=== PATIENT | female | born 1950 | race Hispanic/Latino ===

== ENCOUNTER → 2017-08-21 | Outpatient (CLI) | payer OTHER | END | disposition home or self-care (01) | LOC: RAH 12:34 | PROVIDERS: ATTEND Family Medicine | DX: Z12.31 Encounter for screening mammogram for malignant neoplasm of breast (principal) | CPT/HCPCS: 77067 ==

== ENCOUNTER → 2020-05-31 | Outpatient (CLI) | payer OTHER | END | disposition home or self-care (01) | LOC: RAH 09:54 | PROVIDERS: ATTEND Family Medicine | DX: Z12.31 Encounter for screening mammogram for malignant neoplasm of breast (principal) | CPT/HCPCS: 77067 ==

== ENCOUNTER 2022-01-23 18:11 | Emergency (ER) | payer OTHER ==
[~2022-01-23] VITALS: Ht 157.5 cm; Wt 61.2 kg
[2022-01-23 19:56] LABS: BASOPHILS % (AUTO) 0.6 % (0.0-5.0); EOSINOPHILS % (AUTO) 0.7 % (0.0-8.0); HEMATOCRIT 36.5 % (36-48); LYMPHOCYTES % (AUTO) 20.4 % (21.0-51.0); MEAN CORPUSCULAR HEMOGLOBIN 29.7 pg (27.0-33.0); MEAN CORPUSCULAR HGB CONC 32.9 g/dL (32.0-36.0); MEAN CORPUSCULAR VOLUME 90.3 fL (79-99); MONOCYTES % (AUTO) 5.5 % (3.0-13.0); NEUTROPHILS % (AUTO) 72.5 % (40.0-77.0); PLATELET COUNT (AUTO) 248 K/uL (130-400); RED BLOOD CELL COUNT(AUTO) 4.04 MIL/uL (4.00-5.50); RED CELL DISTRIBUTION WIDTH 12.6 % (11.0-15.5); WHITE BLOOD COUNT (AUTO) 6.8 K/uL (4.8-10.8)
[2022-01-23 20:06] LABS: POTASSIUM 3.6 mmol/L (3.5-5.1)
[2022-01-23 20:21] LABS: ALBUMIN 3.5 g/dL (3.5-5.0); TOTAL PROTEIN, SERUM 7.8 g/dL (6.0-8.3)
[2022-01-23] MEDS ORDERED: KETOROLAC 15MG/ML VIAL (15MG/ML) IV ONE (20:30)
[2022-01-23] MEDS ORDERED: NAPR-1180 PO (21:06)
[2022-01-23 21:09] VITALS: BP 157/83
== END 2022-01-23 21:18 | disposition home or self-care (01) ==
LOC: EDH 18:11
DX: R07.89 Other chest pain (principal); Z90.710 Acquired absence of both cervix and uterus; Z79.899 Other long term (current) drug therapy
CPT/HCPCS: 99285; 96374; 71045; 83735; 84484; 80053; 85025; 36415; J1885; 93005

== ENCOUNTER → 2022-07-07 | Outpatient (CLI) | payer OTHER ==
[~2022-07-07] MED LIST: NAPR-1180 PO
== END | disposition home or self-care (01) ==
LOC: RAH 14:45
PROVIDERS: ATTEND Family Medicine
DX: Z12.31 Encounter for screening mammogram for malignant neoplasm of breast (principal)
CPT/HCPCS: 77067

== ENCOUNTER 2022-09-01 17:45 | Emergency (ER) | payer OTHER ==
[~2022-09-01] VITALS: Ht 157.5 cm; Wt 63.5 kg
[2022-09-01 18:30] LABS: BASOPHILS % (AUTO) 0.7 % (0.0-5.0); EOSINOPHILS % (AUTO) 0.3 % (0.0-8.0); HEMATOCRIT 40.6 % (36-48); LYMPHOCYTES % (AUTO) 16.4 % (21.0-51.0); MEAN CORPUSCULAR HEMOGLOBIN 29.5 pg (27.0-33.0); MEAN CORPUSCULAR VOLUME 92.1 fL (79-99); MONOCYTES % (AUTO) 2.8 % (3.0-13.0); NEUTROPHILS % (AUTO) 79.5 % (40.0-77.0); PLATELET COUNT (AUTO) 251 K/uL (130-400); RED BLOOD CELL COUNT(AUTO) 4.41 MIL/uL (4.00-5.50); RED CELL DISTRIBUTION WIDTH 12.1 % (11.0-15.5); WHITE BLOOD COUNT (AUTO) 9.8 K/uL (4.8-10.8)
[2022-09-01] MEDS ORDERED: ONDANSETRON 4MG INJ IVP ONE (18:30)
[2022-09-01] MEDS ORDERED: MORPHINE 2 MG SYG IVP ONE (18:30)
[2022-09-01] MEDS ORDERED: ONDANSETRON 4MG INJ ONE (18:32)
[2022-09-01] MEDS ORDERED: MORPHINE 2 MG SYG ONE (18:32)
[2022-09-01 18:39] LABS: APPEARANCE,URINE CLEAR (CLEAR); BILIRUBIN,URINE NEGATIVE (NEGATIVE); COLOR,URINE COLORLESS (YELLOW); GLUCOSE, URINE (UA) NEGATIVE (NEGATIVE); KETONES,URINE NEGATIVE (NEGATIVE); LEUKOCYTE ESTERASE ,URINE 25 Leu/uL (NEGATIVE); NITRATE,URINE NEGATIVE (NEGATIVE); OCCULT BLOOD,URINE NEGATIVE (NEGATIVE); PH,URINE 7.5 (5.0-8.0); PROTEIN,URINE NEGATIVE (NEGATIVE); UROBILINOGEN,URINE 0.2 mg/dL (0.2-1.0)
[2022-09-01 18:42] LABS: RBC,URINE 0-1 /HPF (0-1); SQUAMOUS EPITHELIAL CELL,UR RARE /HPF (0-2)
[2022-09-01 18:45] LABS: POTASSIUM 3.6 mmol/L (3.5-5.1); TOTAL PROTEIN, SERUM 8.8 g/dL (6.0-8.3)
[2022-09-01] MEDS ORDERED: FAMOTIDINE 20MG VIAL IV ONE (20:30)
[2022-09-01] MEDS ORDERED: MORPHINE 4 MG SYG IVP ONE (20:30)
[2022-09-01] MEDS ORDERED: METOCLOPRAMIDE 10 MG/2 ML VIAL IVP ONE (20:30)
[2022-09-01] MEDS ORDERED: IOHEXOL-350 75 ML VIAL IV ONE (20:33)
[2022-09-01 20:43] VITALS: BP 194/79
[2022-09-01] MEDS ORDERED: CEFTRIAXONE 2GM VIAL IVPB ONE (23:00)
[2022-09-01] MEDS ORDERED: METO-296 PO (23:01)
[2022-09-01] MEDS ORDERED: FAMO-136 PO (23:01)
[2022-09-01] MEDS ORDERED: CEPH500B PO (23:01)
== END 2022-09-01 23:23 | disposition home or self-care (01) ==
LOC: EDH 17:45
DX: R11.2 Nausea with vomiting, unspecified (principal); R07.89 Other chest pain; Z90.710 Acquired absence of both cervix and uterus
CPT/HCPCS: 99285; 74178; 96374; 96375; 71045; 84484; 80053; 83690; 85025; 81001; 36415; 96376; 93005; J3490; J2270 ×2; J0696; J2405; J2765; Q9967

== ENCOUNTER 2022-09-04 12:26 | Emergency (ER) | payer OTHER ==
[~2022-09-04] VITALS: Ht 157.5 cm; Wt 62.1 kg
[~2022-09-04 12:26] MED LIST changes: +CEPH500B PO; +FAMO-136 PO; +METO-296 PO
[2022-09-04 13:07] LABS: BASOPHILS % (AUTO) 0.4 % (0.0-5.0); EOSINOPHILS % (AUTO) 0.3 % (0.0-8.0); HEMATOCRIT 41.9 % (36-48); LYMPHOCYTES % (AUTO) 12.1 % (21.0-51.0); MEAN CORPUSCULAR HEMOGLOBIN 29.5 pg (27.0-33.0); MEAN CORPUSCULAR VOLUME 92.1 fL (79-99); MONOCYTES % (AUTO) 4.9 % (3.0-13.0); NEUTROPHILS % (AUTO) 81.8 % (40.0-77.0); PLATELET COUNT (AUTO) 277 K/uL (130-400); RED BLOOD CELL COUNT(AUTO) 4.55 MIL/uL (4.00-5.50); RED CELL DISTRIBUTION WIDTH 12.7 % (11.0-15.5); WHITE BLOOD COUNT (AUTO) 14.1 K/uL (4.8-10.8)
[2022-09-04 13:16] LABS: CARBON DIOXIDE 28 mmol/L (21-32); CHLORIDE 95 mmol/L (101-111); CREATININE 1.4 mg/dL (0.5-1.5); GLOMERULAR FILTR. RATE CALC 40 mL/min (>90); GLUCOSE,RANDOM 140 mg/dL (70-105); POTASSIUM 3.4 mmol/L (3.5-5.1); SODIUM SERUM 134 mmol/L (136-145); UREA NITROGEN, BLOOD 33 mg/dL (7-18)
[2022-09-04 13:21] LABS: ALANINE AMINOTRANSFERASE 23 U/L (12-78); ALBUMIN 3.6 g/dL (3.5-5.0); ASPARTATE AMINOTRANSFERASE 22 U/L (10-37); LIPASE < 50 U/L (114-286); TOTAL PROTEIN, SERUM 8.4 g/dL (6.0-8.3)
[2022-09-04 13:22] LABS: APPEARANCE,URINE CLEAR (CLEAR); BILIRUBIN,URINE NEGATIVE (NEGATIVE); COLOR,URINE YELLOW (YELLOW); GLUCOSE, URINE (UA) NEGATIVE (NEGATIVE); KETONES,URINE NEGATIVE (NEGATIVE); LEUKOCYTE ESTERASE ,URINE NEGATIVE Leu/uL (NEGATIVE); NITRATE,URINE NEGATIVE (NEGATIVE); OCCULT BLOOD,URINE NEGATIVE (NEGATIVE); PH,URINE 5.5 (5.0-8.0); PROTEIN,URINE 30 mg/dL (NEGATIVE); UROBILINOGEN,URINE 3 mg/dL (0.2-1.0)
[2022-09-04] MEDS ORDERED: METOCLOPRAMIDE 10 MG/2 ML VIAL IVP ONE (13:30)
[2022-09-04] MEDS ORDERED: KETOROLAC 30MG VIAL (30MG/ML) IVP ONE (13:30)
[2022-09-04] MEDS ORDERED: 0.9%NACL 1000ML 1,000 ML IV ONE (13:30)
[2022-09-04] MEDS ORDERED: FAMOTIDINE 20MG VIAL IV ONE (13:30)
[2022-09-04 13:34] LABS: MUCUS,URINE RARE LPF (None Seen); OTHER CASTS, URINE 1 /LPF (None Seen); SQUAMOUS EPITHELIAL CELL,UR RARE /HPF (0-2)
[2022-09-04 15:02] VITALS: BP 117/69
== END 2022-09-04 15:02 | disposition home or self-care (01) ==
LOC: EDH 12:26
DX: K80.50 Calculus of bile duct without cholangitis or cholecystitis without obstruction (principal); E78.00 Pure hypercholesterolemia, unspecified; Z90.710 Acquired absence of both cervix and uterus; Z98.890 Other specified postprocedural states; Z79.899 Other long term (current) drug therapy
CPT/HCPCS: 99285; 96374; 76705; 71045; 96375; 84484; 80053; 83690; 85025; 87040 ×2; 83605; 81001; 36415; 93005; J3490; J7030; J1885; J2765

== ENCOUNTER → 2023-07-09 | Outpatient (CLI) | payer OTHER ==
[~2023-07-09] MED LIST changes: -CEPH500B PO; -FAMO-136 PO; +LORA10TA7 PO; -METO-296 PO; -NAPR-1180 PO; +OMEP20CA12 PO; +ROSU5TAB12 PO
== END | disposition home or self-care (01) ==
LOC: RAH 08:27
PROVIDERS: ATTEND Family Medicine
DX: Z12.31 Encounter for screening mammogram for malignant neoplasm of breast (principal)
CPT/HCPCS: 77067

== ENCOUNTER → 2024-04-07 | Emergency (ER) | payer OTHER ==
[~2024-04-07] VITALS: Ht 157.5 cm; Wt 63.5 kg
[~2024-04-07] MED LIST changes: +PRED20TA3 PO; -ROSU5TAB12 PO; +ROSU5TAB51 PO; +VALA100031 PO; +predniSONE 20 MG TABLET PO SCH
[2024-04-07 06:33] VITALS: BP 166/81; PULSE 91; RESP 16; TEMP 98.3
--- NOTE | 2024-04-07 07:42 | ERN ---
General Chief Complaint: Insect Bite Stated Complaint: POSSIBLE INSECT BITE, REDNESS Time Seen by MD: 08:28 Source: patient History of Present Illness Initial Comments Patient is a 73-year-old female with a past medical history of hyperlipidemia who presented to the emergency room with complaints of a 2 week history of pain and redness to the right side of her face. Patient states 2 weeks ago she noticed what appeared to be insect bites on her chin, states that there was pain and tenderness to the chin. Patient thought nothing of it until a week later when she noticed some rash on her chin and on the left side of her face. For this she went to her PCP who ordered cephalexin 250 mg and mupirocin ointment. However patient noticed that the redness pain and rash increased so she decided to come to the emergency room for evaluation and treatment. Patient states that she had a fever this morning, temperature was 100.8. Denies any nausea, vomiting, chest pain, shortness of breath. Patient has a history of shingles few years ago. Allergies: Coded Allergies: No Known Allergies (Unverified Allergy, Unknown, 01/23/22) Home Meds Active Scripts Prednisone (Prednisone) 20 Mg Tablet, 1 TAB PO BID for 5 Days, #10 TAB 0 Refills Prov:MAYE PHELAN MD 04/07/24 Valacyclovir HCl (Valacyclovir) 1,000 Mg Tablet, 1 TAB PO TID for 7 Days, #21 TAB 0 Refills Prov:MAYE PHELAN MD 04/07/24 Reported Medications Rosuvastatin Calcium (Rosuvastatin Calcium) 5 Mg Tablet, 5 MG PO HS, TAB 12/28/22 Omeprazole (Omeprazole) 20 Mg Capsule.dr, 20 MG PO DAILY, CAP 12/28/22 Loratadine (Claritin) 10 Mg Tab, 10 MG PO DAILY, TAB 12/28/22 Past Medical History Past Medical History: Diverticulitis, Diverticulosis, Gallstones, High Cholesterol Past Surgical History: Hysterectomy Surgical History Other: TUMOR REMOVED FROM RT LUNG Social History Social History: Negative ROS Dictation Constitutional: No appetite loss, No fevers, chills , No night sweats, No weakness, fatigue Eye: No vision change, No redness, pain or discharge ENT: No hearing loss, ear pain or discharge, No nose bleeds, No sore throat, Neck: No swelling. pain or stiffness Respiratory: No cough, shortness of breath, wheezing Cardiovascular: No chest pain,, palpitations, dyspnea, No edema Gastrointestinal: No abdominal pain, No nausea, vomiting, No diarrhea, constipation Genitourinary: No painful urination, No blood in urine, No urinary incontinence, No frequency or urgency Musculoskeletal: No joint pain, muscle pain, swelling or stiffness Neurological: No numbness, tingling, No weakness, tremors or seizures Integumentary: Rash, redness ,pain left side of face Lymphatic: No easy bruising, No bleeding tendencies , No swollen lymph nodes A 13-point Review of Systems was assessed, all of which are negative except for HPI or as indicated above. Physical Exam Physical Exam Dictation General: Alert & Oriented, No acute distress. EENT: No conjunctival redness or discharge noted Tympanic membranes are clear, Normal hearing, Oral mucosa is moist, No pharyngeal erythema, No nasal discharge, No oral lesions. Neck: Non-tender, No jugular vein distention, No lymphadenopathy, No thyromegaly, Supple. Respiratory: Lungs are clear to auscultation, Respirations are non-labored, Breath sounds are equal, No chest wall tenderness, _. Cardiovascular: Normal rate, Normal rhythm, No murmur, Good pulses equal in all extremities, Normal peripheral perfusion, No edema. Gastrointestinal: Soft, Non-tender, Non-distended, Normal bowel sounds, No organomegaly, _. Musculoskeletal: Normal range of motion, Normal strength, No tenderness, No swelling, No deformity, Normal gait. Integumentary: Vesicular lesions, erythema on the left side of chin and face Neurologic: Alert, Oriented x4, Normal sensory, No focal defects Psychiatric: Cooperative, Appropriate mood & affect, Normal judgement, Non- suicidal. MDM Potential differential diagnoses include: * Shingles * Contact dermatitis Assessment: We will order valacyclovir, Prednisone 20 mg for 5 days I will re-evaluate the patient after treatment and diagnostic exams have returned to determine whether they require further testing, can be safely discharged home, or need admission for further treatment and evaluation. Given the social determinants of health affecting care, including literacy, access to medical care, prescription drug management, and [id number] drugs, I will ensure that treatment plans are tailored accordingly. Revaluation : Patient is alert and oriented. States she feels a lot better . Disposition: Will discharge patient at this time with prescription of Valcyclovir 1000mg for 7 days and Prednisone 20mg bid for 5 days PO and instructions to follow up with PCP for further evaluation and treatment. Attestation: Patient's case was discussed with the ER MD. Reviewed the documentation, medical decision making and treatment plan. Agrees with the findings and plan of care. ED Course Orders Procedure Category Date Status Time Prednisone 20mg Tab PHA 04/07/24 Complete (Deltasone/Orasone 2 09:00 Prednisone 20mg Tab PHA 04/07/24 Complete (Deltasone/Orasone 2 08:57 Current Medications Medications (Trade) Dose Ordered Sig/Gumaro Route PRN Reason Start Time Stop Time Status Last Admin Dose Admin Prednisone (deltaSONE/ oraSONE 20MG TAB) 20 mg BID PO 04/07/24 09:00 04/07/24 07:50 DC Prednisone (deltaSONE/ oraSONE 20MG TAB) 20 mg STK-MED ONCE .ROUTE 04/07/24 08:57 04/07/24 08:57 DC 04/07/24 09:02 Vital Signs Date Time Temp Pulse Resp B/P (MAP) Pulse Ox O2 Delivery O2 Flow Rate FiO2 04/07/24 06:33 98.2 91 16 166/81 96 Room Air 0 DX & DISP Disposition: Discharge Departure Impression: Primary Impression: Shingles rash Critical Time: 30 minutes Condition: Stable Scripts Prednisone (Prednisone) 20 Mg Tablet 1 TAB PO BID for 5 Days, #10 TAB 0 Refills Prov: MAYE PHELAN MD 04/07/24 Valacyclovir HCl (Valacyclovir) 1,000 Mg Tablet 1 TAB PO TID for 7 Days, #21 TAB 0 Refills Prov: MAYE PHELAN MD 04/07/24 Additional Instructions: Discharge Instructions: *Follow up with your primary care physician in 2 - 3 days after discharge. *Continue all medications as prescribed. Do not discontinue or change dosages without consulting your PCP. *Gradually resume normal activities as tolerated. *Continue a balanced diet . Reduce salt intake to help manage BP. *Seek immediate medical attention if you experience chest pain, SOB or severe headache. *Smoking cessation is strongly advised. Resources for quitting smoking are available upon request. Referrals: IAN ANGEL MD (PCP) I WAS PRESENT AND PARTICIPATED IN THE CARE OF THIS PATIENT ALONGSIDE WITH THE RESIDENT PHYSICIAN. I HAVE REVIEWED AND PERSONALLY MADE AND APPROVED THE MANAGEMENT PLAN THAT IS DOCUMENTED IN THE NOTE BY MYSELF WITH THE RESIDENT PHYSICIAN. I ACKNOWLEDGED FOR RESPONSIBILITY FOR THE PATIENT'S MANAGEMENT PLAN. MAYE PHELAN MD Apr 07, 2024 07:42 JAMSHID GAGE MD Apr 07, 2024 17:50
[2024-04-07] MEDS: predniSONE 20 MG TABLET ONE (09:02)
== END ==
LOC: EDH 06:31
DX: B02.9 Zoster without complications (principal); E78.00 Pure hypercholesterolemia, unspecified; Z79.52 Long term (current) use of systemic steroids; Z79.624 Long term (current) use of inhibitors of nucleotide synthesis; Z79.899 Other long term (current) drug therapy; Z90.710 Acquired absence of both cervix and uterus
CPT/HCPCS: 99283

== ENCOUNTER 2024-04-15 13:29 | Emergency (ER) | payer OTHER ==
[~2024-04-15] VITALS: Ht 162.6 cm; Wt 72.6 kg
[~2024-04-15 13:29] MED LIST changes: -predniSONE 20 MG TABLET PO SCH
[2024-04-15 14:09] LABS: BASOPHILS # (AUTO) 0.09 K/uL (0.00-0.20); BASOPHILS % (AUTO) 0.7 % (0.0-5.0); EOSINOPHILS # (AUTO) 0.31 K/uL (0.00-0.70); EOSINOPHILS % (AUTO) 2.5 % (0.0-8.0); HEMATOCRIT 41.1 % (36-48); IMMATURE GRANULOCYTE ABSOLUTE 0.06 K/uL (0-1); LYMPHOCYTES # (AUTO) 3.6 K/uL (1.0-4.8); LYMPHOCYTES % (AUTO) 28.8 % (21.0-51.0); MEAN CORPUSCULAR HEMOGLOBIN 30.6 pg (27.0-33.0); MEAN CORPUSCULAR HGB CONC 32.1 g/dL (32.0-36.0); MEAN CORPUSCULAR VOLUME 95.4 fL (79-99); MONOCYTES # (AUTO) 0.8 K/uL (0.1-1.0); MONOCYTES % (AUTO) 6.3 % (3.0-13.0); NEUTROPHILS # (AUTO) 7.5 K/uL (1.8-7.7); NEUTROPHILS % (AUTO) 61.2 % (40.0-77.0); PLATELET COUNT (AUTO) 318 K/uL (130-400); RED BLOOD CELL COUNT(AUTO) 4.31 MIL/uL (4.00-5.50); RED CELL DISTRIBUTION WIDTH 12.6 % (11.0-15.5); WHITE BLOOD COUNT (AUTO) 12.3 K/uL (4.8-10.8)
--- NOTE | 2024-04-15 14:35 | HMCIMG ---
US SOFT TISSUE HEAD REASON: chin lesion COMPARISON: None TECHNIQUE: Ultrasound was performed of the left submandibular region at the site of spider bite. FINDINGS: There is edematous a cutaneous soft tissue. There are some adjacent mildly enlarged lymph nodes. There are no discrete focal fluid collections suggest abscess. IMPRESSION: 1. Edema and enlarged lymph nodes, no evidence of abscess.
[2024-04-15 14:37] LABS: CREATININE 1.2 mg/dL (0.5-1.0); POTASSIUM 4.6 mmol/L (3.5-5.1)
--- NOTE | 2024-04-15 15:08 | ERN ---
General Chief Complaint: Insect Bite Stated Complaint: SPIDER BITE SCAB REMOVAL ON CHIN Source: patient, family History of Present Illness Initial Comments Patient is a 73-year-old female coming in to be evaluated for angel wound. Patient states that she believes he was bit by a spider two weeks ago in his here for further evaluation. She states that she has a scabbed at forearm that the chin lesion and was concerned it might be getting worse. Allergies: Coded Allergies: No Known Allergies (Unverified Allergy, Unknown, 01/23/22) Home Meds Active Scripts Prednisone (Prednisone) 20 Mg Tablet, 1 TAB PO BID for 5 Days, #10 TAB 0 Refills Prov:MAYE PHELAN MD 04/07/24 Valacyclovir HCl (Valacyclovir) 1,000 Mg Tablet, 1 TAB PO TID for 7 Days, #21 TAB 0 Refills Prov:MAYE PHELAN MD 04/07/24 Reported Medications Rosuvastatin Calcium (Rosuvastatin Calcium) 5 Mg Tablet, 5 MG PO HS, TAB 12/28/22 Omeprazole (Omeprazole) 20 Mg Capsule.dr, 20 MG PO DAILY, CAP 12/28/22 Loratadine (Claritin) 10 Mg Tab, 10 MG PO DAILY, TAB 12/28/22 Past Medical History Past Medical History: Other Medical History Other: HYPERLIPIDEMIA Past Surgical History: Cholecystectomy Surgical History Other: TUMOR REMOVED FROM RT LUNG Social History Social History: Negative ROS Dictation CONSTITUTIONAL: No chills, no fever, no weakness, no diaphoresis, no malaise. HEAD/FACE: No signs of trauma. EENT: No eye pain, no blurred vision, no tearing, no double vision, no ear pain, no ear discharge, no nose pain, no nasal congestion, no throat pain, no throat swelling, no mouth pain. RESPIRATORY: No cough, no orthopnea, no SOB, no stridor, no wheezing. CARDIOVASCULAR: No chest pain, no edema, no palpitations, no syncope. GASTROINTESTINAL/ABDOMINAL: No abdominal pain, no constipation, no diarrhea, no nausea, no vomiting. GENITOURINARY: No abnormal discharge, no dysuria, no frequent urination, no hematuria. No complaints of pain in the genitals. MUSCULOSKELETAL: No back pain, no gout, no joint pain, no joint swelling, no muscle pain, no muscle stiffness, no neck pain. INTEGUMENTARY: No change in color, no change in hair/nails, no dryness, no lesion, no lumps, rash. NEUROLOGICAL/PSYCH: No anxiety, not depressed, no emotional problem, no headache, no numbness, no pre-existing deficit, no history of seizures, no tremors, no weakness. HEMATOLOGIC/LYMPHATIC: Not anemic, no history of blood clots, no apparent b leeding, no bruising, glands not swollen. All Systems Negative, Except as Noted. Physical Exam Physical Exam Dictation VITAL SIGNS: Reviewed. GENERAL APPEARANCE: Alert, oriented x3, no acute distress, obese. HEAD AND FACE: Non-traumatic. EYES: PERRL, pink conjunctivas, eyelid no trauma, anterior chamber clear. EARS: Pinnas intact and no signs of trauma or erythema. Ear canals clear and no discharge. TMs no erythema. NOSE: No discharge, no bleeding. OROPHARYNX: Mouth normal, teeth no caries, tongue pink. Pharynx clear, no erythema. Tonsils no exudates, no abscesses noted. Mucous membrane moist. NECK: Supple, non-tender, no thyromegaly, no masses, no JVD, no bruits. BREAST: Deferred. CHEST: No tenderness, no crepitus, no paradoxical movement, no retractions. LUNGS: Clear, well-ventilated, symmetric, no rales, no wheezing, no rhonchi, no stridor, good breath sounds bilaterally. HEART: Regular rate, regular rhythm, no murmur, no gallops. VASCULAR: No peripheral edema. ABDOMEN: Soft, positive bowel sounds, nondistended, no guarding, nontender, no rebound, no masses no hepatomegaly, no splenomegaly, no Lang's sign, no hernias. RECTAL: Deferred. GENITAL: Deferred. NEUROLOGICAL: Normal speech, gross motor function intact, gross sensory function intact. MUSCULOSKELETAL: Neck nontender, full range of motion, back nontender, full ra nge of motion. EXTREMITIES: Nontender, full range of motion. SKIN: Color pink, dry, no turgor, no rash, no lacerations, angel abrasions , scab formation, no contusions. LYMPHATICS: Deferred. Results Laboratory and Microbiology Lab and Micro Result Laboratory Tests Test 04/15/24 13:58 White Blood Count 12.3 K/uL (4.8-10.8) H Red Blood Count 4.31 MIL/uL (4.00-5.50) Hemoglobin 13.2 g/dL (12.0-16.0) Hematocrit 41.1 % (36-48) Mean Corpuscular Volume 95.4 fL (79-99) Mean Corpuscular Hemoglobin 30.6 pg (27.0-33.0) Mean Corpuscular Hemoglobin Concent 32.1 g/dL (32.0-36.0) Red Cell Distribution Width 12.6 % (11.0-15.5) Platelet Count 318 K/uL (130-400) Mean Platelet Volume 10.5 fL (7.5-10.5) Immature Granulocyte % (Auto) 0.5 % (0-1) Neutrophils (%) (Auto) 61.2 % (40.0-77.0) Lymphocytes (%) (Auto) 28.8 % (21.0-51.0) Monocytes (%) (Auto) 6.3 % (3.0-13.0) Eosinophils (%) (Auto) 2.5 % (0.0-8.0) Basophils (%) (Auto) 0.7 % (0.0-5.0) Neutrophils # (Auto) 7.5 K/uL (1.8-7.7) Lymphocytes # (Auto) 3.6 K/uL (1.0-4.8) Monocytes # (Auto) 0.8 K/uL (0.1-1.0) Eosinophils # (Auto) 0.31 K/uL (0.00-0.70) Basophils # (Auto) 0.09 K/uL (0.00-0.20) Absolute Immature Granulocyte (auto 0.06 K/uL (0-1) Nucleated Red Blood Cells 0.0 % (0.0-0.19) Sodium Level 139 mmol/L (136-145) Potassium Level 4.6 mmol/L (3.5-5.1) Chloride Level 102 mmol/L (101-111) Carbon Dioxide Level 32 mmol/L (21-32) Blood Urea Nitrogen 31 mg/dL (7-18) H Creatinine 1.2 mg/dL (0.5-1.0) H Glomerular Filtration Rate Calc 47 mL/min (>90) Random Glucose 113 mg/dL (70-105) H Total Calcium 8.3 mg/dL (8.5-10.1) L MDM MDM: Differential diagnosis: Wound evaluation, scab formation, Patient is a 73-year-old female coming in to be evaluated for a angel lesion. Ultrasound did disclose mi lymphangitis. Laboratory workup mild elevated white blood cell count but patient is currently on doxycycline. I advised her appropriate follow up with PCP and ongoing treatment with the antibiotics prescribed by PCP. ED Course Orders Procedure Category Date Status Time Cbc With Differential LAB 04/15/24 Complete 13:41 Basic Metabolic Panel LAB 04/15/24 Complete 13:41 Us Soft Tissue Head US 04/15/24 Resulted 13:42 Vital Signs Date Time Temp Pulse Resp B/P (MAP) Pulse Ox O2 Delivery O2 Flow Rate FiO2 04/15/24 13:54 98.6 66 20 128/88 100 Room Air* 0 21 04/15/24 13:54 98.8 66 20 122/74 100 Room Air 0 DX & DISP Disposition: Discharge Departure Impression: Primary Impression: Encounter for evaluation of wound Condition: Stable Additional Instructions: FOLLOW-UP WITH PRIMARY CARE PROVIDER IN 1 TO 2 DAYS. TAKE MEDICATIONS DIRECTED HERE IN THE EMERGENCY ROOM. OKAY TO CONTINUE HOME MEDICATIONS UNLESS OTHERWISE DISCUSSED DURING YOUR VISIT IN THE EMERGENCY ROOM TODAY. RETURN TO YOUR NEAREST EMERGENCY ROOM IF SYMPTOMS WORSEN OR IF THERE IS NO IMPROVEMENT. CALL 911 IF YOU NEED IMMEDIATE ASSISTANCE. TAKE TYLENOL [id number] NEEDED AND IF NO CONTRAINDICATIONS ARE PRESENT. INCREASE ORAL HYDRATION. A WOUND CULTURE OR URINE CULTURE WAS ORDERED HERE IN THE EMERGENCY ROOM DEPARTMENT PLEASE FOLLOW-UP WITH PRIMARY CARE PROVIDER AND ADVISE THEM TO GET REPEAT PORTS FROM OUR FACILITY. IF YOU HAD ANY FARZANEH WRAP/SPLINTS THAT WERE APPLIED HERE, PLEASE DO NOT REMOVE THEM UNTIL YOU SEE YOUR PRIMARY CARE OR SPECIALTY. Referrals: Referrals: IAN ANGEL MD (PCP) HANK SANON Time of Disposition: 15:08 JAMSHID GAGE MD Apr 15, 2024 15:08
[2024-04-15 15:21] VITALS: BP 124/78; PULSE 64; RESP 20; TEMP 98.6; O2SAT 100
== END 2024-04-15 15:23 | disposition home or self-care (01) ==
LOC: EDH 13:29
DX: S01.80XA Unspecified open wound of other part of head, initial encounter (principal); E78.49 Other hyperlipidemia; Z79.52 Long term (current) use of systemic steroids; Z79.624 Long term (current) use of inhibitors of nucleotide synthesis; Z79.899 Other long term (current) drug therapy; Z90.49 Acquired absence of other specified parts of digestive tract; W57.XXXA Bitten or stung by nonvenomous insect and other nonvenomous arthropods, initial encounter; Y93.89 Activity, other specified; Y92.89 Other specified places as the place of occurrence of the external cause; Y99.8 Other external cause status
CPT/HCPCS: 36415; 76536; 80048; 85025; 99284